=== PATIENT | female | born 1995 | race Caucasian/White ===

== ENCOUNTER 2017-12-25 10:41 | Emergency (ER) | payer OTHER ==
[~2017-12-25] VITALS: Ht 167.6 cm; Wt 65.0 kg
[2017-12-25 11:21] VITALS: BP 130/91; PULSE 113; RESP 16; TEMP 98.1; O2SAT 100
[2017-12-25 12:28] VITALS: BP 138/87; PULSE 112; RESP 18; O2SAT 100
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
[2017-12-25] MEDS ORDERED: LORA-474 PO (13:10)
[2017-12-25] MEDS ORDERED: CETI1TAB53 (13:10)
[2017-12-25] MEDS ORDERED: ALBU6.7H INH (13:10)
[2017-12-25] MEDS ORDERED: AMIT150T PO (13:10)
[2017-12-25] MEDS ORDERED: BUSP10TA PO (13:10)
[2017-12-25 18:01] VITALS: BP 125/87; PULSE 97; RESP 18; O2SAT 98
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
== END 2017-12-25 18:56 | disposition home or self-care (01) ==
LOC: NEPD 10:41 → NEPJ 18:56
DX: R45.851 Suicidal ideations (principal); F60.3 Borderline personality disorder
CPT/HCPCS: 99284